=== PATIENT | male | born 1990 | race Caucasian/White ===

== ENCOUNTER 2017-10-04 16:17 | Emergency (ER) | payer MEDICAID ==
[~2017-10-04] VITALS: Ht 188 cm; Wt 84.5 kg
[2017-10-04] MEDS ORDERED: IBUPROFEN 800 MG TABLET PO ONE (17:00)
[2017-10-04 17:55] VITALS: BP 124/77
== END 2017-10-04 18:01 | disposition home or self-care (01) ==
LOC: EMS 16:20
DX: S62.397A Other fracture of fifth metacarpal bone, left hand, initial encounter for closed fracture (principal); W22.8XXA Striking against or struck by other objects, initial encounter; Y93.89 Activity, other specified; Y92.89 Other specified places as the place of occurrence of the external cause; Y99.8 Other external cause status
CPT/HCPCS: 99284

== ENCOUNTER 2022-06-21 19:53 | Inpatient (IN) | payer MEDICAID ==
[~2022-06-21] VITALS: Ht 188 cm; Wt 78.1 kg
[2022-06-21 20:25] LABS: BASOPHILS % (AUTO) 0.6 % (0.0-2.0); EOSINOPHILS % (AUTO) 3.4 % (1.0-6.0); HEMATOCRIT 42.8 % (41-53); HEMOGLOBIN 14.3 g/dL (13.5-17.5); LYMPHOCYTES # (AUTO) 1.8 K/uL (1.0-4.8); LYMPHOCYTES % (AUTO) 23.1 % (22.0-44.0); MEAN CORPUSCULAR HGB CONC 33.3 G/dL (31.0-37.0); MEAN CORPUSCULAR VOLUME 93 fL (80-100); MONOCYTES # (AUTO) 0.7 K/uL (0.1-1.0); MONOCYTES % (AUTO) 8.5 % (2.0-9.0); NEUTROPHILS # (AUTO) 5.1 K/uL (1.8-7.7); NEUTROPHILS % (AUTO) 64.4 % (40.0-70.0); PLATELET COUNT (AUTO) 208 K/uL (150-450); RED BLOOD CELL COUNT(AUTO) 4.59 MIL/uL (4.50-5.90); RED CELL DISTRIBUTION WIDTH 12.9 % (11.5-14.5)
[2022-06-21 20:35] LABS: ANION GAP 11 mmol/L (8-16); CALCIUM, TOTAL 9.4 mg/dL (8.8-10.5); CARBON DIOXIDE 25 mmol/L (22-29); CHLORIDE 102 mmol/L (98-107); CREATININE 1.18 mg/dL (0.60-1.30); GLOMERULAR FILTR. RATE CALC > 60 mL/min (>60); GLUCOSE,RANDOM 98 mg/dL (70-110); POTASSIUM 3.6 mmol/L (3.5-5.1); SODIUM SERUM 138 mmol/L (136-145); UREA NITROGEN, BLOOD 18 mg/dL (7-18)
[2022-06-21 20:41] LABS: ALANINE AMINOTRANSFERASE 43 U/L (12-78); ALBUMIN 4.1 g/dL (3.4-5.0); ALKALINE PHOSPHATASE 92 U/L (46-116); ASPARTATE AMINOTRANSFERASE 17 U/L (15-37); BILIRUBIN,TOTAL 0.5 mg/dL (0.1-1.0); TOTAL PROTEIN, SERUM 7.7 g/dL (6.4-8.2)
[2022-06-21 21:32] LABS: COVID AG,FIA SOURCE NASOPHARYNGEAL
[2022-06-22] MEDS ORDERED: LORazepam 2 MG TABLET PO PRN (00:30)
[2022-06-22] MEDS ORDERED: ZOLPIDEM TARTRATE 10 MG TABLET PO PRN (00:30)
[2022-06-22] MEDS ORDERED: HALOPERIDOL 5 MG TABLET PO PRN (00:30)
[2022-06-22 11:15] VITALS: BP 122/70
[2022-06-22 16:16] VITALS: BP 101/67
[2022-06-22] MEDS ORDERED: MAG HYDROX/AL HYDROX/SIMETH ES 30 ML SUSPENSION UDCUP PO PRN (16:45)
[2022-06-22] MEDS ORDERED: LOPERAMIDE HCL 2 MG CAPSULE PO PRN (16:45)
[2022-06-22] MEDS ORDERED: TUBERCULIN, PURIFIED PROTEIN DERIVATIVE 5 TU/0.1 ML SYRINGE ID ONE (16:45)
[2022-06-22] MEDS ORDERED: MAGNESIUM HYDROXIDE SUSPENSION 30 ML UDCUP PO PRN (16:45)
[2022-06-22] MEDS ORDERED: PROMETHAZINE HCL 25 MG TABLET PO PRN (16:45)
[2022-06-22] MEDS ORDERED: ACETAMINOPHEN 325 MG TABLET PO PRN (16:45)
[2022-06-22] MEDS ORDERED: GuaiFENesin/D-METHORPHAN [SUGAR-FREE] 200-20MG/10 ML SYRUP UDCUP PO PRN (16:45)
[2022-06-22] MEDS ORDERED: HydrOXYzine PAMOATE 50 MG CAPSULE PO PRN (16:45)
[2022-06-22] MEDS: THIAMINE 100 MG TABLET PO SCH (18:40)
[2022-06-22] MEDS: MELATONIN 3 MG TABLET PO SCH (20:49)
[2022-06-22] MEDS: MIRTAZAPINE 15 MG TABLET PO SCH (20:49)
[2022-06-22 22:02] VITALS: BP 113/60
[2022-06-23 07:18] LABS: CHOL/HDL RATIO 2.9 (4.2-7.3); FREE T4 (FREE THYROXINE) 0.85 ng/dL (0.76-1.46); THYROID STIMULATING HORMONE 0.71 uIU/mL (0.36-3.74)
[2022-06-23 07:23] LABS: HEMOGLOBIN A1C 4.8 % (3.8-5.6)
[2022-06-23 08:30] VITALS: BP 100/60
[2022-06-23] MEDS: THIAMINE 100 MG TABLET PO SCH ×2 (09:22→16:39)
[2022-06-23] MEDS: MULTIVITAMINS WITH MINERALS, THERAPEUTIC TABLET PO SCH (09:22)
[2022-06-23] MEDS: FOLIC ACID 1 MG TABLET PO SCH (09:22)
[2022-06-23] MEDS: DEXTROMETHORPHAN HBR/QUINIDINE 20/10 MG CAPSULE PO SCH (09:22)
[2022-06-23] MEDS: OMEGA-3/DHA/EPA/FISH OIL 1,000 MG CAPSULE PO SCH (09:22)
[2022-06-23] MEDS: NALTREXONE HCL 50 MG TABLET PO SCH (09:22)
[2022-06-23 16:48] VITALS: BP 106/54
[2022-06-23] MEDS ORDERED: LORazepam 2 MG/ML VIAL ONE (17:19)
[2022-06-23] MEDS ORDERED: DiphenhydrAMINE HCL 50 MG/ML VIAL ONE (17:20)
[2022-06-23] MEDS ORDERED: HALOPERIDOL LACTATE 5 MG/ML VIAL ONE (17:22)
[2022-06-23] MEDS ORDERED: HALOPERIDOL LACTATE 5 MG/ML VIAL IM ONE (17:30)
[2022-06-23] MEDS ORDERED: DiphenhydrAMINE HCL 50 MG/ML VIAL IM ONE (17:30)
[2022-06-23] MEDS ORDERED: LORazepam 2 MG/ML VIAL IM ONE (17:30)
[2022-06-23] MEDS: MIRTAZAPINE 15 MG TABLET PO SCH (20:59)
[2022-06-23] MEDS: MELATONIN 3 MG TABLET PO SCH (20:59)
[2022-06-24] MEDS: DEXTROMETHORPHAN HBR/QUINIDINE 20/10 MG CAPSULE PO SCH ×2 (08:54→09:00)
[2022-06-24] MEDS: FOLIC ACID 1 MG TABLET PO SCH ×2 (08:54→09:00)
[2022-06-24] MEDS: THIAMINE 100 MG TABLET PO SCH ×3 (08:54→16:13)
[2022-06-24] MEDS: NALTREXONE HCL 50 MG TABLET PO SCH ×2 (08:54→09:00)
[2022-06-24] MEDS: OMEGA-3/DHA/EPA/FISH OIL 1,000 MG CAPSULE PO SCH ×2 (08:54→09:00)
[2022-06-24] MEDS: MULTIVITAMINS WITH MINERALS, THERAPEUTIC TABLET PO SCH ×2 (08:54→09:00)
[2022-06-24 08:55] VITALS: BP 112/65
[2022-06-24] MEDS: NICOTINE 21 MG/24 HOUR PATCH TD SCH (08:55)
[2022-06-24 16:00] VITALS: BP 102/67
[2022-06-24] MEDS: MIRTAZAPINE 15 MG TABLET PO SCH (20:59)
[2022-06-24] MEDS: MELATONIN 3 MG TABLET PO SCH (20:59)
[2022-06-25] MEDS: OMEGA-3/DHA/EPA/FISH OIL 1,000 MG CAPSULE PO SCH (09:00)
[2022-06-25] MEDS: MULTIVITAMINS WITH MINERALS, THERAPEUTIC TABLET PO SCH (09:00)
[2022-06-25] MEDS: THIAMINE 100 MG TABLET PO SCH ×2 (09:00→17:00)
[2022-06-25] MEDS: FOLIC ACID 1 MG TABLET PO SCH (09:00)
[2022-06-25] MEDS: DEXTROMETHORPHAN HBR/QUINIDINE 20/10 MG CAPSULE PO SCH (09:00)
[2022-06-25] MEDS: NICOTINE 21 MG/24 HOUR PATCH TD SCH ×2 (09:00→17:03)
[2022-06-25] MEDS: NALTREXONE HCL 50 MG TABLET PO SCH (09:00)
[2022-06-25 09:08] VITALS: BP 102/60
[2022-06-25] MEDS: MELATONIN 3 MG TABLET PO SCH (20:33)
[2022-06-25] MEDS: MIRTAZAPINE 15 MG TABLET PO SCH (20:33)
[2022-06-26 08:30] VITALS: BP 123/79
[2022-06-26] MEDS: FOLIC ACID 1 MG TABLET PO SCH (09:00)
[2022-06-26] MEDS: OMEGA-3/DHA/EPA/FISH OIL 1,000 MG CAPSULE PO SCH (09:00)
[2022-06-26] MEDS: NICOTINE 21 MG/24 HOUR PATCH TD SCH (09:00)
[2022-06-26] MEDS: MULTIVITAMINS WITH MINERALS, THERAPEUTIC TABLET PO SCH (09:00)
[2022-06-26] MEDS: DEXTROMETHORPHAN HBR/QUINIDINE 20/10 MG CAPSULE PO SCH (09:00)
[2022-06-26] MEDS: THIAMINE 100 MG TABLET PO SCH ×2 (09:00→17:00)
[2022-06-26] MEDS: NALTREXONE HCL 50 MG TABLET PO SCH (09:00)
== END 2022-06-26 19:25 | disposition left against medical advice (07) | DRG 750 ==
LOC: EMS 19:54 → 3EI 06-22 10:50 → 3EC 06-23 18:09
PROVIDERS: ADMIT Psychiatry & Neurology Psychiatry; ATTEND Psychiatry & Neurology Psychiatry
DX: F25.0 Schizoaffective disorder, bipolar type (principal); R45.851 Suicidal ideations; Z20.822 Contact with and (suspected) exposure to COVID-19; Z53.29 Procedure and treatment not carried out because of patient's decision for other reasons; F10.10 Alcohol abuse, uncomplicated; F41.9 Anxiety disorder, unspecified; F17.200 Nicotine dependence, unspecified, uncomplicated; Y90.1 Blood alcohol level of 20-39 mg/100 ml; Z81.8 Family history of other mental and behavioral disorders
CPT/HCPCS: 80053; 80061; 83036; 84439; 84443; 85025; 86592; 99285; G0480; J1200; J1630; J2060; Q9967